=== PATIENT | male | born 1945 | race African-American/Black ===

== ENCOUNTER 2018-06-11 11:54 | Emergency (ER) | payer BC, OTHER ==
[2018-06-11 12:08] VITALS: PULSE 96; TEMP 97.4; BMI 29.6
--- NOTE | 2018-06-11 13:17 | PDOC ---
History of Present Illness - General History Source: Patient - History of Present Illness Timing/Duration: other <Patricia Spencer - Last Filed: 06/11/18 16:25> <Alexandrea Burgess - Last Filed: 06/13/18 11:03> - General Chief Complaint: Shortness of Breath Stated Complaint: SOB Time Seen by Provider: 06/11/18 12:51 Past History - Past Medical History COPD: No HTN: No - Immunization History Immunization Up to Date: Yes - Suicide/Smoking/Psychosocial Hx Smoking History: Never smoked Hx Alcohol Use: No Drug/Substance Use Hx: No <Patricia Spencer - Last Filed: 06/11/18 16:25> <Alexandrea Burgess - Last Filed: 06/13/18 11:03> - Past Medical History Allergies/Adverse Reactions: Allergies Allergy/AdvReac Type Severity Reaction Status Date / Time No Known Allergies Allergy Verified 06/11/18 12:08 Home Medications: Ambulatory Orders Albuterol Sulfate [Proair Hfa] 8.5 gm ASDIR PRN 06/11/18 Tiotropium Br/Olodaterol HCl [Stiolto Respimat Inhal [place]] 4 gm IH ASDIR predniSONE [Deltasone -] 40 mg PO DAILY #8 tablet 06/11/18 Review of Systems - Review of Systems Constitutional: No: Chills, Fever Respiratory: Yes: Shortness of Breath. No: Cough Cardiac (ROS): No: Chest Pain, Lightheadedness, Palpitations ABD/GI: No: Nausea, Vomiting <Patricia Spencer - Last Filed: 06/11/18 16:25> *Physical Exam - Vital Signs Last Vital Signs Temp Pulse Resp BP Pulse Ox 97.4 F L 96 H 20 185/131 H 98 06/11/18 12:04 06/11/18 12:04 06/11/18 12:04 06/11/18 12:04 06/11/18 12:04 - Physical Exam General Appearance: Yes: Appropriately Dressed. No: Apparent Distress HEENT: positive: Normal Voice Neck: positive: Supple. negative: Lymphadenopathy (R), Lymphadenopathy (L) Respiratory/Chest: positive: Lungs Clear, Normal Breath Sounds. negative: Respiratory Distress Cardiovascular: positive: Regular Rate, S1, S2 <Patricia Spencer - Last Filed: 06/11/18 16:25> - Vital Signs Last Vital Signs Temp Pulse Resp BP Pulse Ox 97.4 F L 96 H 20 175/93 H 98 06/11/18 12:04 06/11/18 12:04 06/11/18 12:04 06/11/18 16:23 06/11/18 12:04 <Alexandrea Burgess - Last Filed: 06/13/18 11:03> Moderate Sedation - Procedure Monitoring Vital Signs: Procedure Monitoring Vital Signs Temperature 97.4 F L 06/11/18 12:04 Pulse Rate 96 H 06/11/18 12:04 Respiratory Rate 20 06/11/18 12:04 Blood Pressure 185/131 H 06/11/18 12:04 O2 Sat by Pulse Oximetry (%) 98 06/11/18 12:04 <Patricia Spencer - Last Filed: 06/11/18 16:25> - Procedure Monitoring Vital Signs: Procedure Monitoring Vital Signs Temperature 97.4 F L 06/11/18 12:04 Pulse Rate 96 H 06/11/18 12:04 Respiratory Rate 20 06/11/18 12:04 Blood Pressure 175/93 H 06/11/18 16:23 O2 Sat by Pulse Oximetry (%) 98 06/11/18 12:04 <Alexandrea Burgess - Last Filed: 06/13/18 11:03> ED Treatment Course - LABORATORY CBC & Chemistry Diagram: 06/11/18 14:10 06/11/18 14:10 <Patricia Spencer - Last Filed: 06/11/18 16:25> - LABORATORY CBC & Chemistry Diagram: 06/11/18 14:10 06/11/18 14:10 - ADDITIONAL ORDERS Additional order review: 06/11/18 14:10 RBC 4.79 MCV 81.5 MCHC 33.8 RDW 15.0 MPV 7.2 L Neutrophils % 48.8 Lymphocytes % 32.6 Monocytes % 8.6 Eosinophils % 8.4 H Basophils % 1.6 - Medications Given in the ED: ED Medications Discontinued Medications Generic Name Dose Route Start Last Admin Trade Name Freq PRN Reason Stop Dose Admin Albuterol/Ipratropium 1 amp 06/11/18 13:30 06/11/18 14:50 Duoneb - NEB 06/11/18 14:16 1 amp Q15M KATIE Administration Prednisone 60 mg 06/11/18 13:21 06/11/18 14:06 Deltasone - PO 06/11/18 13:22 60 mg ONCE ONE Administration <AdityaAlexandrea - Last Filed: 06/13/18 11:03> Medical Decision Making - Medical Decision Making 06/11/18 13:13 72 male, h/o HTN (taken off meds per pt), pulmonary sarcoids, here for shortness of breath. 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 [facility] to be evaluated. Patient states he currently has a pulmonary appointment in 5 days. Denies any cough, fever, chills or chest pain at this time See exam Pulm sarcoids w/ exacerbation Currently on tiotropium bromide combo w/ no relief Has pulm appt next week Stable and in NAD w/ diffuse wheezing -nebs -pred -cxr -reassess BP sig elevated here Taken off BP meds for improved BP in past per pt -Will check EKG/labs 06/11/18 16:05 Labs, EKG and CXR unremarkable. Pt reports feeling sig better w/ clear lungs on reassessment and able to ambulate without SOB. BP slightly improved but still elevated to 175/95. [facility] and [facility]. Staff instructed me to document any prescriptions on discharge paper and fax it to them as they are currently unable to receive electronic rx from us. Inform me that patient has an appointment with both his new fisher sponge hooking and his PMD on Thursday at the [facility]. Reasons to return to ER discussed with patient <Patricia Spencer - Last Filed: 06/11/18 16:25> *DC/Admit/Observation/Transfer <Patricia Spencer - Last Filed: 06/11/18 16:25> - Attestations Physician Attestion: I reviewed the case with the mid-level practitioner and agree with the mid- level practitioner's assessment, diagnosis and disposition. <Alba Burgessbeth - Last Filed: 06/13/18 11:03> Diagnosis at time of Disposition: Wheezing, Elevated blood pressure reading - Discharge Dispostion Disposition: HOME Condition at time of disposition: Improved - Prescriptions Prescriptions: predniSONE [Deltasone -] 40 mg PO DAILY #8 tablet - Patient Instructions Additional Instructions: You were here for possible sarcoids flare which improved with nebulizers and 60 mg of prednisone. We want you to take 40 mg of prednisone daily for the next 4 days. This information will be faxed over to Dr. Duval. Please follow-up with your fisher sponge hooking as already scheduled next week. Your blood pressure was found to be elevated here. Please follow-up with your PMD for management If symptoms worsen, return to the ER
[2018-06-11] MEDS ORDERED: predniSONE 20 MG TABLET (UD) PO ONE (13:21)
[2018-06-11] MEDS ORDERED: ALBUTEROL SO4 2.5/IPRATROPIUM 0.5 INH SOL 3 ML VIAL.NEB. NEB ONE ×2 (13:57→14:45)
[2018-06-11] MEDS ORDERED: predniSONE 20 MG TABLET (UD) ONE (13:57)
[2018-06-11] MEDS: ALBUTEROL SO4 2.5/IPRATROPIUM 0.5 INH SOL 3 ML VIAL.NEB. NEB SCH ×4 (14:06→14:50)
[2018-06-11 14:25] LABS: BASO % 1.6 % (0-2.0); EOS % 8.4 % (0-4.5); HEMATOCRIT 39.1 % (35.4-49); HEMOGLOBIN 13.2 GM/dL (11.7-16.9); LYMPH % 32.6 % (8-40); MCH 27.5 pg (25.7-33.7); MCHC 33.8 g/dl (32.0-35.9); MEAN CELL VOLUME 81.5 fl (80-96); MEAN PLT VOLUME 7.2 fl (7.5-11.1); MONO % 8.6 % (3.8-10.2); NEUT % 48.8 % (42.8-82.8); PLATELET COUNT 267 K/MM3 (134-434); RBC 4.79 M/mm3 (4.00-5.60); WHITE BLOOD COUNT 4.7 K/mm3 (4.0-10.0)
[2018-06-11 15:10] LABS: ALBUMIN 3.7 g/dl (3.4-5.0); ALK PHOS 91 U/L (45-117); ANION GAP 6 MMOL/L (8-16); BILIRUBIN,TOTAL 0.7 mg/dL (0.2-1); BLOOD UREA NITROGEN 17 mg/dL (7-18); CALCIUM 8.8 mg/dL (8.5-10.1); CHLORIDE 105 mmol/L (98-107); CO2 30 mmol/L (21-32); CREATININE 1.3 mg/dL (0.55-1.3); GLUCOSE,RANDOM 80 mg/dL (74-106); N-TERMINAL BNP 134.6 pg/ml (5-125); POTASSIUM 3.7 mmol/L (3.5-5.1); SGOT/AST 25 U/L (15-37); SGPT/ALT 24 U/L (13-61); SODIUM 141 mmol/L (136-145); TOT PROT 7.1 g/dl (6.4-8.2)
[2018-06-11 16:24] VITALS: BP 175/93
--- NOTE | 2018-06-14 11:05 | EKG ---
Test Reason : Blood Pressure : / mmHG Vent. Rate : 087 BPM Atrial Rate : 087 BPM P-R Int : 158 ms QRS Dur : 070 ms QT Int : 366 ms P-R-T Axes : 067 054 049 degrees QTc Int : 440 ms NORMAL SINUS RHYTHM NORMAL ECG NO PREVIOUS ECGS AVAILABLE Confirmed by TERRANCE RÍOS MD ([id number]) on 06/14/2018 11:04:40 AM Referred By: Confirmed By:TERRANCE RÍOS MD
== END 2018-06-11 16:24 | disposition home or self-care (01) ==
LOC: JER 11:54
PROC: 3E0F7GC Introduction of Other Therapeutic Substance into Respiratory Tract, Via Natural or Artificial Opening (ICD-10-PCS; principal; 2018-06-11)
DX: R06.2 Wheezing (principal); R03.0 Elevated blood-pressure reading, without diagnosis of hypertension; D86.89 Sarcoidosis of other sites
CPT/HCPCS: 36415; 71046-TC-FY; 80053; 82550; 82553; 83880; 84484; 85025; 93005; 93010; 94640; 99282-25

== ENCOUNTER 2018-11-21 05:54 | Emergency (ER) | payer BC, OTHER ==
[2018-11-21] MEDS ORDERED: predniSONE 20 MG TABLET (UD) PO ONE (06:10)
[2018-11-21] MEDS ORDERED: ALBUTEROL SO4 2.5/IPRATROPIUM 0.5 INH SOL 3 ML VIAL.NEB. NEB ONE ×2 (06:11→06:31)
[2018-11-21 06:25] VITALS: PULSE 80; TEMP 97.9; BMI 30.4
[2018-11-21] MEDS ORDERED: predniSONE 20 MG TABLET (UD) ONE (06:30)
--- NOTE | 2018-11-21 06:34 | PDOC ---
History of Present Illness - General Chief Complaint: Shortness of Breath Stated Complaint: DIFFICULTY BREATHING Time Seen by Provider: 11/21/18 06:00 - History of Present Illness Initial Comments: 11/21/18 06:28 73M with pmh of HTN, pulmonary sarcoid, here for shortness of breath worsening over the past 2 months. Says that his medicaltion foesn't work for him anymore. He says that he used to take Breo which worked for him, but that they have trouble filling his prescription for it at the [facility]. Nect appointment with electrolysis investigator next month but he can have it set up for Thursday. Past History - Past Medical History Allergies/Adverse Reactions: Allergies Allergy/AdvReac Type Severity Reaction Status Date / Time No Known Allergies Allergy Verified 06/11/18 12:08 Home Medications: Ambulatory Orders Albuterol Sulfate [Proair Hfa] 8.5 gm IH ASDIR PRN 06/11/18 Tiotropium Br/Olodaterol HCl [Stiolto Respimat Inhal [place]] 4 gm IH ASDIR Mometasone Furoate [Asmanex] 220 mcg IH DAILY 11/21/18 COPD: No HTN: No - Immunization History Immunization Up to Date: Yes - Suicide/Smoking/Psychosocial Hx Smoking History: Never smoked Hx Alcohol Use: No Drug/Substance Use Hx: No Review of Systems - Review of Systems Able to Perform ROS?: Yes Is the patient limited Nepali proficient: No Constitutional: No: Symptoms Reported HEENTM: No: Symptoms Reported Respiratory: Yes: See HPI Cardiac (ROS): No: Symptoms Reported ABD/GI: No: Symptoms Reported : No: Symptoms Reported Musculoskeletal: No: Symptoms Reported Integumentary: No: Symptoms Reported All Other Systems: Reviewed and Negative *Physical Exam - Vital Signs Last Vital Signs Temp Pulse Resp BP Pulse Ox 97.9 F 80 24 H 162/108 H 99 11/21/18 06:05 11/21/18 06:05 11/21/18 06:05 11/21/18 06:05 11/21/18 06:05 - Physical Exam General Appearance: Yes: Nourished, Appropriately Dressed. No: Apparent Distress HEENT: positive: EOMI, CARLOS, Normal ENT Inspection Neck: negative: Tender Respiratory/Chest: positive: Normal Breath Sounds. negative: Chest Tender, Lungs Clear Cardiovascular: positive: Regular Rhythm, Regular Rate, S1, S2 Gastrointestinal/Abdominal: positive: Normal Bowel Sounds, Flat, Soft. negative : Tender Musculoskeletal: positive: Normal Inspection. negative: CVA Tenderness Extremity: positive: Normal Capillary Refill, Normal Inspection Integumentary: positive: Normal Color, Dry, Warm Medical Decision Making - Medical Decision Making 11/21/18 06:36 73 with pmh of sarcoidosis presents with sob. Wiill give him treatment that gave him relief last time (duonebs and prednisone) , ekg and trops to r/o ia 11/21/18 07:24 Patient signed out to Dr. Saini *DC/Admit/Observation/Transfer Diagnosis at time of Disposition: Sarcoidosis - Referrals Referrals: ON STAFF,NOT [Primary Care Provider] - - Patient Instructions - Post Discharge Activity
--- NOTE | 2018-11-21 06:48 | PDOC ---
Attending Attestation - Resident Resident Name: Derian Epperson - ED Attending Attestation I have performed the following: I have examined & evaluated the patient, The case was reviewed & discussed with the resident, I agree w/resident's findings & plan - HPI HPI: 11/21/18 06:47 Pt comes with SOB and states that he thinks that it is his sarcoid flare; however his BP is elevated 160s/100s, and he is 73 years old with cardiac and pulmonary pathology; we will check cardiac enzymes. - Physicial Exam PE: 11/21/18 06:48 Agree with resident exam. - Medical Decision Making 11/21/18 19:55 Pt appears well. He states that Breo is the only medication that helps his sarcoidosis, Pt states that other generic meds do not work as well, but that the [facility] pharmacies don't stock Breo, so he comes here for treatment. He has elevated BP and he will be tested for heart pathology as well as pulm pathology and I will sign him out to the day ER docs.
--- NOTE | 2018-11-21 07:17 | PDOC ---
*Physical Exam - Vital Signs Last Vital Signs Temp Pulse Resp BP Pulse Ox 97.9 F 80 24 H 162/108 H 99 11/21/18 06:05 11/21/18 06:05 11/21/18 06:05 11/21/18 06:05 11/21/18 06:05 - Physical Exam General Appearance: No: Apparent Distress HEENT: positive: Normal Voice, Nasal Congestion. negative: Scleral Icterus (R) , Scleral Icterus (L), Muffled/Hoarse voice Neck: positive: Trachea midline. negative: Lymphadenopathy (R), Lymphadenopathy (L) Respiratory/Chest: positive: Lungs Clear, Normal Breath Sounds. negative: Respiratory Distress, Accessory Muscle Use, Crackles, Rales, Wheezing, Plerual Rub Cardiovascular: positive: Regular Rhythm, Regular Rate Comments:: 11/21/18 07:56 radial pulses 2+ Gastrointestinal/Abdominal: positive: Soft, Other (rectus diastasis with valsalva). negative: Distended, Guarding, Rebound Extremity: negative: Coldness, Cyanosis Integumentary: positive: Dry, Warm Neurologic: positive: Alert <Kunal Saini - Last Filed: 11/21/18 09:33> - Vital Signs Last Vital Signs Temp Pulse Resp BP Pulse Ox 97.9 F 80 24 H 162/108 H 99 11/21/18 06:05 11/21/18 06:05 11/21/18 06:05 11/21/18 06:05 11/21/18 06:05 <TamieCorinne Tamiefelicianomary - Last Filed: 11/21/18 09:49> Heart Score/ECG Review - History History: Slightly suspicious - Electrocardiogram EKG: Normal - Age Age: </= 45 - Risk Factors Risk Factors Heart Score: Yes Hx Hypertension, Yes Hx Obesity Based on the list above the patient has:: 1-2 risk factors - ECG Intrepretation Rhythm: Regular Rhythm - [place]: Normal <Kunal Saini - Last Filed: 11/21/18 09:33> ED Treatment Course - LABORATORY CBC & Chemistry Diagram: 11/21/18 08:20 11/21/18 08:20 - Medications Given in the ED: ED Medications Discontinued Medications Generic Name Dose Route Start Last Admin Trade Name Freq PRN Reason Stop Dose Admin Albuterol/Ipratropium 1 amp 11/21/18 06:11 11/21/18 06:44 Duoneb - NEB 11/21/18 06:12 1 amp ONCE ONE Administration Prednisone 60 mg 11/21/18 06:10 11/21/18 06:44 Deltasone - PO 11/21/18 06:11 60 mg ONCE ONE Administration <Kunal Saini - Last Filed: 11/21/18 09:33> - LABORATORY CBC & Chemistry Diagram: 11/21/18 08:20 11/21/18 08:20 - Medications Given in the ED: ED Medications Discontinued Medications Generic Name Dose Route Start Last Admin Trade Name Freq PRN Reason Stop Dose Admin Albuterol/Ipratropium 1 amp 11/21/18 06:11 11/21/18 06:44 Duoneb - NEB 11/21/18 06:12 1 amp ONCE ONE Administration Fluticasone Propionate 2 spray 11/21/18 07:30 11/21/18 08:03 Flonase - NS 11/21/18 07:31 2 spr ONCE ONE Administration Prednisone 60 mg 11/21/18 06:10 11/21/18 06:44 Deltasone - PO 11/21/18 06:11 60 mg ONCE ONE Administration <Corinne Willett - Last Filed: 11/21/18 09:49> Medical Decision Making - Medical Decision Making 11/21/18 08:00 - current vitals: HR 92, BP 155/90 - in lieu of Breo, fluticasone ordered 11/21/18 09:34 - EKG, CBC, CMP, CXR reviewed -- no major abnormalities - will give KCl for low potassium - stable for discharge <Kunal Saini - Last Filed: 11/21/18 09:33> - Medical Decision Making signed out from Dr Kaufman pending eval, workup, labs cxr EKG normal sinus rhythm, no interval abnormalities, narrow QRS, ST and T wave segments and morphology normal. Nonspecific T wave abnormalities no elevations or depressions of ST segments labs and lytes wnl trop neg Repeat VS improved, no respiratory distress, no wheezing s/p prednisone and duoneb with improvement, lungs clear steroid course for sarcoid, inhaler instructions HTN instructions, recheck with [facility]D, [facility], with outpatient followup for his labile BP, supportive measures and regimen as discussed. return precautions. 11/21/18 08:14 11/21/18 09:29 11/21/18 09:29 <WillettCorinne Bennett - Last Filed: 11/21/18 09:49> *DC/Admit/Observation/Transfer - Discharge Dispostion Decision to Admit order: No <Kunal Saini - Last Filed: 11/21/18 09:33> <Corinne Willett - Last Filed: 11/21/18 09:49> Diagnosis at time of Disposition: Sarcoidosis - Discharge Dispostion Disposition: HOME Condition at time of disposition: Stable - Referrals Referrals: ON STAFF,NOT [Primary Care Provider] - - Patient Instructions Printed Discharge Instructions: DI for High Blood Pressure, Sarcoidosis Additional Instructions: You were evaluated for shortness of breath, related to to your chronic sarcoidosis. You condition improved after receiving duobneb, prednisone, and inhaled fluticasone. The labs, CXR did not show major abnormalities. You were deemed safe for discharge home with follow-up with your PCP/Sawmilling Operator at the [facility]. Please discuss your high blood pressure with your doctor at that time Please return to the ED if you experience: - severe shortness of breath, even at rest - chest pain - severe, unremitting headache or dizziness - Post Discharge Activity
[2018-11-21] MEDS ORDERED: FLUTICASONE PROP 0.05% 16 GM NASAL SPRAY NS ONE (07:30)
[2018-11-21 08:38] LABS: BASO % 1.2 % (0-2.0); EOS % 1.9 % (0-4.5); HEMATOCRIT 38.6 % (35.4-49); HEMOGLOBIN 12.9 GM/dL (11.7-16.9); LYMPH % 30.9 % (8-40); MCHC 33.4 g/dl (32.0-35.9); MEAN CELL VOLUME 80.8 fl (80-96); MEAN PLT VOLUME 7.7 fl (7.5-11.1); MONO % 7.5 % (3.8-10.2); NEUT % 58.5 % (42.8-82.8); RBC 4.78 M/mm3 (4.00-5.60); RDW 14.9 % (11.9-15.9); WHITE BLOOD COUNT 5.1 K/mm3 (4.0-10.0)
[2018-11-21 08:47] VITALS: BP 156/97
[2018-11-21 08:47] LABS: PLATELET COUNT 238 K/MM3 (134-434)
[2018-11-21 09:13] LABS: ALBUMIN 3.9 g/dl (3.4-5.0); ALK PHOS 91 U/L (45-117); ANION GAP 8 MMOL/L (8-16); BILIRUBIN,TOTAL 1.1 mg/dL (0.2-1); BLOOD UREA NITROGEN 12.9 mg/dL (7-18); CALCIUM 9.2 mg/dL (8.5-10.1); CHLORIDE 105 mmol/L (98-107); CO2 27 mmol/L (21-32); CREATININE 1.5 mg/dL (0.55-1.3); GLUCOSE,RANDOM 133 mg/dL (74-106); POTASSIUM 3.3 mmol/L (3.5-5.1); SGOT/AST 19 U/L (15-37); SGPT/ALT 22 U/L (13-61); SODIUM 141 mmol/L (136-145); TOT PROT 7.3 g/dl (6.4-8.2)
[2018-11-21] MEDS ORDERED: POTASSIUM CHLORIDE TABS 20 MEQ TABLET.ER (FP) PO ONE ×2 (09:34→09:38)
--- NOTE | 2018-11-21 14:18 | EKG ---
Test Reason : Blood Pressure : / mmHG Vent. Rate : 090 BPM Atrial Rate : 090 BPM P-R Int : 148 ms QRS Dur : 074 ms QT Int : 354 ms P-R-T Axes : 030 000 012 degrees QTc Int : 433 ms NORMAL SINUS RHYTHM NORMAL ECG WHEN COMPARED WITH ECG OF 11-JUN-2018 12:02, NONSPECIFIC T WAVE ABNORMALITY NOW EVIDENT IN INFERIOR LEADS Confirmed by MD Kinney Daniel ([id number]) on 11/21/2018 2:18:34 PM Referred By: Confirmed By:Kraig Kinney MD
== END 2018-11-21 09:48 | disposition home or self-care (01) ==
LOC: JER 05:54
PROC: 3E0F7GC Introduction of Other Therapeutic Substance into Respiratory Tract, Via Natural or Artificial Opening (ICD-10-PCS; principal; 2018-11-21)
DX: D86.9 Sarcoidosis, unspecified (principal); I10 Essential (primary) hypertension; E66.9 Obesity, unspecified; Z68.30 Body mass index [BMI] 30.0-30.9, adult
CPT/HCPCS: 36415; 71046-TC-FY; 80053; 82550; 82553; 84484; 85025; 93005; 93010; 99282-25

== ENCOUNTER 2020-01-16 14:08 | Emergency (ER) | payer OTHER ==
--- NOTE | 2020-01-16 14:21 | PDOC ---
Rapid Medical Evaluation Time Seen by Provider: 01/16/20 14:17 Medical Evaluation: Allergies Allergy/AdvReac Type Severity Reaction Status Date / Time No Known Allergies Allergy Verified 01/16/20 14:18 01/16/20 14:19 I have performed a brief in-person examination on this patient. CC: "my legs are swollen." Denies SOB. +Nasal congestion PE: Lungs diminished b/l. edema b/l R>L. Orders: labs, urine, sono Patient will proceed to ED for further evaluation. Discharge Disposition - Diagnosis Edema - Referrals - Patient Instructions - Post Discharge Activity
[2020-01-16 14:23] VITALS: TEMP 97.9; BMI 32.6
--- NOTE | 2020-01-16 15:44 | PDOC ---
History of Present Illness - General Chief Complaint: Edema Stated Complaint: RT LEG SWOLLEN Time Seen by Provider: 01/16/20 14:17 - History of Present Illness Initial Comments: 74 YOM history of sarcoidosis, htn presents for bilateral lower leg swelling since 3 days. Patient reports that he has had multiple bouts of lower leg edema over the past 2 years. Has been treated with high blood pressure medications and diuretics and is generally well controlled. Currently denies CP, SOB, orthopnea, fever, chills, nausea, vomiting, diarrhea. Constitutional: No Weight Change, No Fever, No Chills, No Night Sweats, No Fatigue, No Malaise ENT/Mouth: No Hearing Changes, No Ear Pain, No Nasal Congestion, No Sinus Pain, No Hoarseness, No sore throat, No Rhinorrhea, No Swallowing Difficulty Eyes: No Eye Pain, No Swelling, No Redness, No Foreign Body, No Discharge, No Vision Changes Cardiovascular: No Chest Pain, No SOB, No PND, No Dyspnea on Exertion, No Orthopnea, No Claudication, + Edema, No Palpitations Respiratory: No Cough, No Sputum, No Wheezing, No Smoke Exposure, No Dyspnea Gastrointestinal: No Nausea, No Vomiting, No Diarrhea, No Constipation, No Pain, No Heartburn, No Anorexia, No Dysphagia, No Hematochezia, No Melena, No Flatulence, No Jaundice Genitourinary: No Dysmenorrhea, No DUB, No Dyspareunia, No Dysuria, No Urinary Frequency, No Hematuria, No Urinary Incontinence, No Urgency, No Flank Pain, No Urinary Flow Changes, No Hesitancy Musculoskeletal: No Arthralgias, No Myalgias, No Joint Swelling, No Joint Stiffness, No Back Pain, No Neck Pain, No Injury History Skin: No Skin Lesions, No Pruritis, No Hair Changes, No Breast/Skin Changes, No Nipple Discharge Neuro: No Weakness, No Numbness, No Paresthesias, No Loss of Consciousness, No Syncope, No Dizziness, No Headache, No Coordination Changes, No Recent Falls Psych: No Anxiety/Panic, No Depression, No Insomnia, No Personality Changes, No Delusions, No Rumination, No SI/HI/AH/VH, No Social Issues, No Memory Changes, No Violence/Abuse Hx., No Eating Concerns Heme/Lymph: No Bruising, No Bleeding, No Transfusions History, No Lymphadenop athy Endocrine: No Polyuria, No Polydipsia, No Temperature Intolerance 01/16/20 16:51 Past History - Medical History Allergies/Adverse Reactions: Allergies Allergy/AdvReac Type Severity Reaction Status Date / Time No Known Allergies Allergy Verified 01/16/20 14:18 Home Medications: Ambulatory Orders Albuterol Sulfate [Proair Hfa] 8.5 gm IH ASDIR PRN 06/11/18 Tiotropium Br/Olodaterol HCl [Stiolto Respimat Inhal [place]] 4 gm IH ASDIR 06/11/18 Mometasone Furoate [Asmanex] 220 mcg IH DAILY 11/21/18 Cephalexin [Keflex] 500 mg PO QID 7 Days #28 capsule 01/16/20 Sulfamethoxazole/Trimethoprim [Bactrim Ds -] 1 tab PO BID #14 tablet 01/16/20 COPD: No HTN: Yes - Immunization History Immunization Up to Date: Yes - Psycho-Social/Smoking History Smoking History: Never smoked Have you smoked in the past 12 months: No - Substance Abuse Hx (Audit-C & DAST Scrn) How often the patient has a drink containing alcohol: Never Score: In Men: 4 or > Positive; In Women: 3 or > Positive: 0 Screen Result (Pos requires Nsg. Audit-10AR): Negative In the last yr the pt used illegal drug/Rx for NonMed reason: No Score: Yes response is considered Positive: 0 Screen Result (Positive result requires Nsg. DAST-10): Negative *Physical Exam - Vital Signs Last Vital Signs Temp Pulse Resp BP Pulse Ox 97.9 F 79 18 141/84 100 01/16/20 14:19 01/16/20 14:19 01/16/20 14:19 01/16/20 14:19 01/16/20 14:19 ED Treatment Course - LABORATORY CBC & Chemistry Diagram: 01/16/20 15:50 01/16/20 15:50 Medical Decision Making - Medical Decision Making 74 YOM with bilateral lower leg edema - vitals wnl - exam remarkable for lower leg swelling right>left, some erythema and warmth at right leg - will do cbc, cmp, bnp, cxr, ekg - labs and imaging wnl - will treat for cellulitis - will dc patient to home with follow up. Discharge - Discharge Information Problems reviewed: Yes Clinical Impression/Diagnosis: Edema Qualifiers: Edema type: unspecified Qualified Code(s): R60.9 - Edema, unspecified - Admission No - Additional Discharge Information Prescriptions: Sulfamethoxazole/Trimethoprim [Bactrim Ds -] 1 tab PO BID #14 tablet Cephalexin [Keflex] 500 mg PO QID 7 Days #28 capsule - Follow up/Referral - Patient Discharge Instructions Additional Instructions: You were seen in the ER for lower leg swelling. You received labs and imaging both of which were unremarkable. We are concerned you may have a skin infection in your left leg called cellulitis. You received one dose of antibiotics in the ER and a prescription for abx which you should take when you get home. Please take the full course of antibiotics. Please follow up with your physician at the [facility] within 2 days of leaving the emergency department. If you are unable to make an appointment at the [facility] you can return to the ER for follow up. When you are home: Take the prescribed antibiotic medicine you are given as directed until it is gone. Take it even if you feel better. It treats the infection and stops it from returning. Not taking all the medicine can make future infections hard to treat. Keep the infected area clean. When possible, raise the infected area above the level of your heart. This helps keep swelling down. Talk with your healthcare provider if you are in pain. Ask what kind of sodp-gng-djxlspa medicine you can take for pain. Take your temperature once a day for a week. Wash your hands often to prevent spreading the infection. In the future, wash your hands before and after you touch cuts, scratches, or bandages. This will help prevent infection. When to call your healthcare provider Return to the ER if you have any of the following: Difficulty or pain when moving the joints above or below the infected area Discharge or pus draining from the area Fever of 100.4F (38C) or higher, or as directed by your healthcare provider Pain that gets worse in or around the infected Redness that gets worse in or around the infected area, particularly if the area of redness expands to a wider area Shaking chills Swelling of the infected area Vomiting - Post Discharge Activity
--- NOTE | 2020-01-16 16:36 | PDOC ---
Documentation entered by Russell Velez SCRIBE, acting as scribe for Hawk Cruz MD. Hawk Cruz MD: This documentation has been prepared by the Agustin pandya Alexis, SCRIBE, under my direction and personally reviewed by me in its entirety. I confirm that the documentation accurately reflects all work, treatment, procedures, and medical decision making performed by me. Attending Attestation - Resident Resident Name: JoshTr orr - ED Attending Attestation I have performed the following: I have examined & evaluated the patient, The case was reviewed & discussed with the resident, I agree w/resident's findings & plan, Exceptions are as noted - HPI HPI: 01/16/20 16:32 The patient is a 74 year old male with a significant past medical history of sarcoidosis and HTN who presents to the emergency department for evaluation of bilateral lower leg swelling, right worse than left, that began 3 days ago. The patient reports similar episodes that began two years ago, causing him to be treated with high blood pressure medications and diuretics. He endorses scratching his legs. Denies difficulty ambulating. The patient denies chest/abdominal/back pain, cough, and shortness of breath. Denies fever, chills, nausea, vomiting, and/or any GI symptoms. Denies any symptoms. Denies any other symptoms. Allergies: NKA Social Hx: None reported - Physicial Exam PE: 01/16/20 15:55 Vitals: Triage vital signs reviewed General Appearance: No acute distress, well nourished, well developed Head: Atraumatic Cardiac: Regular rate and rhythm, no murmurs, no rubs, no gallops Lungs: Clear to auscultation bilateral, good air movement bilaterally Abdomen: Soft, nondistended, normal bowel sounds, nontender to palpation Extremities:Bilateral lower extremity swelling right greater than left. Bilateral scratch guzman lower extremities. Right lower extremity warm to touch slight redness noted Skin: Warm and dry, no rashes or lesions, no rash, no petechiae Psych: Normal mood, normal affect - Medical Decision Making 01/16/20 16:36 Several day history of lower extremity swelling right greater than left right lower extremity consistent with acute cellulitis Possible slight early cellulitis around ankle of left lower extremity We will check labs duplex to rule out DVT no history of diabetes patient not immunocompromise good candidate for trial of oral outpatient medication with very close follow-up Dr. Hardin to follow-up results and reassess. Discharge - Discharge Information Problems reviewed: Yes Clinical Impression/Diagnosis: Edema Qualifiers: Edema type: unspecified Qualified Code(s): R60.9 - Edema, unspecified - Follow up/Referral - Patient Discharge Instructions - Post Discharge Activity
--- NOTE | 2020-01-16 16:53 | EKG ---
Test Reason : Blood Pressure : / mmHG Vent. Rate : 067 BPM Atrial Rate : 067 BPM P-R Int : 162 ms QRS Dur : 080 ms QT Int : 406 ms P-R-T Axes : 046 017 019 degrees QTc Int : 429 ms NORMAL SINUS RHYTHM POSSIBLE LEFT ATRIAL ENLARGEMENT BORDERLINE ECG WHEN COMPARED WITH ECG OF 21-NOV-2018 06:59, NO SIGNIFICANT CHANGE WAS FOUND Confirmed by TERRANCE RÍOS MD ([id number]) on 01/16/2020 4:52:49 PM Referred By: Confirmed By:TERRANCE RÍOS MD
[2020-01-16 16:57] LABS: BASO % 0.9 % (0-2.0); EOS % 3.1 % (0-4.5); HEMATOCRIT 36.4 % (35.4-49); HEMOGLOBIN 12.1 GM/dL (11.7-16.9); LYMPH % 32.8 % (8-40); MCH 27.3 pg (25.7-33.7); MCHC 33.3 g/dl (32.0-35.9); MEAN PLT VOLUME 7.8 fl (7.5-11.1); NEUT % 54.2 % (42.8-82.8); PLATELET COUNT 276 K/MM3 (134-434); RBC 4.44 M/mm3 (4.00-5.60); RDW 15.5 % (11.9-15.9); WHITE BLOOD COUNT 4.3 K/mm3 (4.0-10.0)
[2020-01-16 17:19] LABS: ALBUMIN 3.7 g/dl (3.4-5.0); ALK PHOS 90 U/L (45-117); ANION GAP 5 MMOL/L (8-16); BILIRUBIN,TOTAL 0.5 mg/dL (0.2-1); BLOOD UREA NITROGEN 16.7 mg/dL (7-18); CALCIUM 9.5 mg/dL (8.5-10.1); CHLORIDE 104 mmol/L (98-107); CO2 32 mmol/L (21-32); CREATININE 1.5 mg/dL (0.55-1.3); GLUCOSE,RANDOM 95 mg/dL (74-106); N-TERMINAL BNP 246.9 pg/ml (5-125); POTASSIUM 3.5 mmol/L (3.5-5.1); SGOT/AST 21 U/L (15-37); SGPT/ALT 24 U/L (13-61); SODIUM 141 mmol/L (136-145); TOT PROT 7.2 g/dl (6.4-8.2)
[2020-01-16] MEDS ORDERED: CEPHALEXIN MONOHYDRATE 500 MG CAPSULE (UD) PO ONE (17:53)
[2020-01-16] MEDS ORDERED: SULFAMETHOXAZOLE/TRIMETHOPRIM 800MG/160MG D.S. TABLET PO ONE (17:53)
[2020-01-16] MEDS ORDERED: CEPHALEXIN MONOHYDRATE 500 MG CAPSULE (UD) ONE (18:07)
[2020-01-16] MEDS ORDERED: SULFAMETHOXAZOLE/TRIMETHOPRIM 800MG/160MG D.S. TABLET ONE (18:07)
[2020-01-16 19:03] VITALS: BP 144/74; PULSE 56
== END 2020-01-16 19:10 | disposition home or self-care (01) ==
LOC: JER 14:08
DX: R60.0 Localized edema (principal)
CPT/HCPCS: 36415; 71046-TC-FY; 80053; 82550; 82553; 83735; 83880; 84484; 85025; 93005; 93010; 93970-TC; 99285-25